=== PATIENT | female | born 1945 | race Caucasian/White ===

== ENCOUNTER → 2017-02-26 | Outpatient (CLI) | payer MEDICARE, OTHER | END | disposition home or self-care (01) | LOC: PCVCCLINIC 10:05 | PROVIDERS: ATTEND Internal Medicine Cardiovascular Disease | DX: I25.10 Atherosclerotic heart disease of native coronary artery without angina pectoris (principal); I10 Essential (primary) hypertension; E78.00 Pure hypercholesterolemia, unspecified; R60.9 Edema, unspecified; Z88.6 Allergy status to analgesic agent; Z79.82 Long term (current) use of aspirin; Z90.49 Acquired absence of other specified parts of digestive tract; Z90.710 Acquired absence of both cervix and uterus; Z96.653 Presence of artificial knee joint, bilateral; Z87.891 Personal history of nicotine dependence | CPT/HCPCS: 93005; G0463 ==

== ENCOUNTER → 2018-07-29 | Outpatient (CLI) | payer MEDICARE, OTHER ==
--- NOTE | 2018-07-29 13:57 | PCVCIMAG ---
APPROVED REPORT Study performed: 07/29/2018 12:22:18 EXAM: Comprehensive 2D, Doppler, and color-flow Echocardiogram Patient Location: Echo lab Status: routine BSA: 2.11 HR: 84 bpmBP: 166/86 mmHg Rhythm: NSR Other Information Study Quality: Adequate Risk Factors: Cardiac Risk Factors: HTN, Hyperlipidemia Indications CAD obesity 2D Dimensions IVSd: 13.13 (7-11mm) LVDd: 36.29 mm PWd: 12.56 (7-11mm)Ascending Ao: 31.45 (22-36mm) LVDs: 26.13 (25-40mm) Left Atrium: 32.27 (27-40mm) Aortic Root: 28.61 mm LV Single Plane 4CH: 54.26 % LV Single Plane 2CH: 52.55 % Volumes Left Atrial Volume (Systole) Single Plane 4CH: 61.55 mLSingle Plane 2CH: 54.91 mL Aortic Valve AoV Peak Vin.: 1.60 m/s AO Peak Gr.: 10.23 mmHgLVOT Max P.12 mmHg LVOT Max V: 0.97 m/s Mitral Valve E/A Ratio: 0.6 MV Decel. Time: 281.48 ms MV E Max Vin.: 0.55 m/s MV A Vin.: 0.91 m/s IVRT: 114.19 ms Pulmonary Valve PV Peak Vin.: 0.93 m/sPV Peak Gr.: 3.46 mmHg Pulmonary Vein P Vein S: 0.35 m/sP Vein A: 0.35 m/s P Vein D: 0.40 m/sP Vein A Dur.: 134.9 msec P Vein S/D Ratio: 0.88 Tricuspid Valve TV Vmax: 0.47 m/s Left Ventricle The left ventricle is normal size. There is normal LV segmental wall motion. Mild concentric left ventricular hypertrophy. Left ventricular systolic function is normal. The left ventricular ejection fraction is within the normal range. LVEF is 55%. Grade I - abnormal relaxation pattern. Right Ventricle The right ventricle is normal size. The right ventricular systolic function is normal. Atria The left atrium size is normal. The right atrium size is normal. Aortic Valve The aortic valve is normal in structure. No aortic regurgitation is present. There is no aortic valvular stenosis. Mitral Valve The mitral valve is normal in structure. There is no mitral valve regurgitation noted. No evidence of mitral valve stenosis. Tricuspid Valve The tricuspid valve is normal in structure. There is no tricuspid valve regurgitation noted. Pulmonic Valve The pulmonary valve is normal in structure. There is no pulmonic valvular regurgitation. Great Vessels The aortic root is normal in size. IVC is normal in size and collapses >50% with inspiration. Pericardium There is no pericardial effusion. There is no pleural effusion. <Conclusion> The left ventricle is normal size. Mild concentric left ventricular hypertrophy. Left ventricular systolic function is normal. Grade I - abnormal relaxation pattern. The right ventricle is normal size. The left atrium size is normal. The right atrium size is normal. The aortic valve is normal in structure. The mitral valve is normal in structure. There is no tricuspid valve regurgitation noted.
== END | disposition home or self-care (01) ==
LOC: PCVCIMAG 13:23
PROVIDERS: ATTEND Internal Medicine Cardiovascular Disease
DX: I25.10 Atherosclerotic heart disease of native coronary artery without angina pectoris (principal); E66.9 Obesity, unspecified; I10 Essential (primary) hypertension; Z79.82 Long term (current) use of aspirin; Z87.891 Personal history of nicotine dependence
CPT/HCPCS: 93005; 93306; G0463